=== PATIENT | female | born 1980 | race American Indian/Alaskan Native ===

== ENCOUNTER 2021-03-28 18:43 | Inpatient (IN) | payer SELFPAY ==
[2021-03-28] MEDS ORDERED: ACETAMINOPHEN 500 MG TAB PO STA (18:58)
[2021-03-28] MEDS ORDERED: ONDANSETRON 4 MG/2 ML INJ IV ONE ×2 (18:58→22:43)
[2021-03-28] MEDS ORDERED: KETOROLAC 30 MG/1 ML INJ IV ONE (19:02)
[2021-03-28] MEDS ORDERED: SODIUM CHLORIDE 0.9% 1000 ML 1,000 ML IV ONE (19:06)
--- NOTE | 2021-03-28 19:06 | Event Note ---
ED Screening Note Date of service: 03/28/21 Time: 19:05 ED Screening Note: Patient complains of nausea and vomiting x7 days Arrived by EMS States she has had 2 - Covid test She does admit to cough Patient complains of right lower quadrant pain only with urinating and with defecation This initial assessment/diagnostic orders/clinical plan/treatment(s) is/are subject to change based on patients health status, clinical progression and re- assessment by fellow clinical providers in the ED. Further treatment and workup at subsequent clinical providers discretion. Patient/guardian urged not to elope from the ED as their condition may be serious if not clinically assessed and managed. Initial orders include: Labs Chest x-ray Meds
[2021-03-28 19:16] LABS: Basophils % (Auto) 0.2 % (0.0-1.8); Hematocrit 40.2 % (30.3-42.9); Hemoglobin 13.6 gm/dl (10.1-14.3); Lymphocytes # (Auto) 0.7 K/mm3 (1.2-5.4); Lymphocytes % (Auto) 9.8 % (13.4-35.0); Mean Corpuscular HGB Conc 34 % (30-34); Mean Corpuscular Volume 94 fl (79-97); Monocytes # (Auto) 0.8 K/mm3 (0.0-0.8); Platelet Count 259 K/mm3 (140-440); Red Blood Count 4.29 M/mm3 (3.65-5.03); Red Cell Distribution Width 13.5 % (13.2-15.2)
[2021-03-28 19:36] LABS: Alanine Aminotransferase 44 units/L (7-56); Albumin 3.8 g/dL (3.9-5); Blood Urea Nitrogen 8 mg/dL (7-17); Hemolysis Index 24
[2021-03-28 19:40] LABS: BUN/Creatinine Ratio 13
[2021-03-28] MEDS ORDERED: ACETAMINOPHEN 500 MG TAB PO ONE (20:15)
--- NOTE | 2021-03-28 20:18 | XRay Report ---
CHEST 2 VIEWS INDICATION: cough, fever. COMPARISON: None. FINDINGS: Support devices: None. Heart: Within normal limits. Lungs/Pleura: Pneumonia superior segment left lower lobe. Right lung clear. No significant pleural ef fusion. IMPRESSION: Pneumonia superior segment left lower lobe. Signer Name: Tesfaye Kapadia MD Signed: 03/28/2021 8:14 PM Workstation Name: [id number]
[2021-03-28] MEDS ORDERED: AZITHROMYCIN 250 MG TAB PO ONE (20:52)
[2021-03-28] MEDS ORDERED: MORPHINE 4 MG/1 ML INJ IV ONE (20:52)
[2021-03-28] MEDS ORDERED: cefTRIAXone/NS 1 GM/50 ML 1 GM/50 ML BAG IV ONE (20:52)
--- NOTE | 2021-03-28 21:31 | Cat Scan Report ---
CT ABDOMEN AND PELVIS WITH CONTRAST INDICATION / CLINICAL INFORMATION: RLQ abdominal pain. TECHNIQUE: Axial CT images were obtained through the abdomen and pelvis after 100 cc of Omnipaque [address] scans at this location are performed using CT dose reduction for ALARA by means of automated exposure control. COMPARISON: None available. FINDINGS: LOWER CHEST: There are scattered groundglass opacities with bilateral lower lobes, most consistent wi th Covid pneumonia. There is a small pericardial effusion. AORTA / ARTERIES: No significant abnormality. IVC / VEINS: No significant abnormality. LYMPH NODES: No significant adenopathy. COLON: No significant abnormality. APPENDIX: The appendix is enlarged, measuring proximally 1.0 cm. STOMACH / SMALL BOWEL: No significant abnormality. PERITONEUM: There is a small amount of free fluid within the pelvis. No free air. No fluid collection . LIVER: No significant abnormality. GALLBLADDER: No significant abnormality. BILE DUCTS: No significant abnormality. PANCREAS: No significant abnormality. SPLEEN: No significant abnormality. ADRENALS: No significant abnormality. RIGHT KIDNEY / URETER: No significant abnormality. LEFT KIDNEY / URETER: No significant abnormality. URINARY BLADDER: No significant abnormality. REPRODUCTIVE ORGANS: No significant abnormality. SKELETAL SYSTEM: No significant abnormality. ADDITIONAL FINDINGS: None. IMPRESSION: 1. Acute appendicitis. 2. Ground glass opacities within the bilateral lower lobes concerning for Covid pneumonia. 3. There is a small amount of free fluid within the pelvis, which may be physiologic versus related t o the acute appendicitis. 4. Small pericardial effusion. Signer Name: Matt Traore DO Signed: 03/28/2021 9:27 PM Workstation Name: [id number]
[2021-03-28 22:05] LABS: Mucus,Urine FEW /HPF
[2021-03-28 22:21] LABS: Color,Urine Straw (Yellow)
[2021-03-28 22:22] LABS: Bilirubin,Urine Negative (Negative); Blood,Urine Trace (Negative); Urobilinogen,Urine < 2.0 mg/dL (<2.0)
--- NOTE | 2021-03-28 22:33 | Emergency Department Report ---
ED N/V/D HPI - General Chief complaint: Nausea/Vomiting/Diarrhea Stated complaint: N/V/D Source: patient Mode of arrival: Ambulatory Limitations: No Limitations - History of Present Illness Initial comments: Patient is a 40-year-old -Surinamese female with no past medical history who presents to the ED with complaint of acute onset persistent severe right lower quadrant pain, nausea and vomiting and diarrhea for the last 1 week. Patient states that her tested positive for COVID-19 viral infection about a week ago and has been in self quarantine. Patient also complains of diffuse body aches and pains, lack of appetite, generalized weakness, lightheadedness and headache. Patient also states that she has not been able to keep anything down including fluids due to persistent nausea and vomiting and diarrhea. Patient states that she has had to repeat COVID-19 diagnostic test results which were negative. Patient however denies dizziness, syncope, chest pain or shortness of breath, dysuria, urinary frequency and urgency, vaginal bleeding, vaginal discharge, constipation, back pain, palpitations or change in vision. MD complaint: nausea, vomiting, diarrhea, abdominal pain, other -: Sudden (Fever and chills), week(s) (1) Description of Vomiting: food contents, watery, bilious Description of Diarrhea: water Associated Abdominal Pain: Yes (Severe right lower quadrant pain) Location: RLQ Radiation: none Severity: severe Pain Scale: 8 Quality: cramping, aching, sharp Consistency: constant Improves with: none Worsens with: eating, bowel movement, vomiting, movement Associated Symptoms: denies other symptoms, myalgias, fever/chills, headaches, loss of appetite, malaise, nausea/vomiting, weakness. denies: chest pain, cough, diaphoresis, rash, dysuria, shortness of breath, syncope - Related Data Allergies Allergy/AdvReac Type Severity Reaction Status Date / Time No Known Allergies Allergy Unverified 03/28/21 18:48 ED Review of Systems ROS: Stated complaint: N/V/D Other details as noted in HPI Constitutional: chills, fever, malaise, weakness Eyes: denies: eye pain, eye discharge, vision change ENT: denies: ear pain, throat pain Respiratory: cough. denies: shortness of breath, wheezing Cardiovascular: denies: chest pain, palpitations Endocrine: no symptoms reported Gastrointestinal: abdominal pain (Right lower quadrant pain), nausea, vomiting, diarrhea Genitourinary: denies: urgency, dysuria, frequency, hematuria, discharge, abnormal menses Musculoskeletal: arthralgia, myalgia. denies: back pain, joint swelling Skin: denies: rash, lesions Neurological: denies: headache, weakness, paresthesias Psychiatric: denies: anxiety, depression Hematological/Lymphatic: denies: easy bleeding, easy bruising ED Physical Exam - General Limitations: No Limitations General appearance: alert, in no apparent distress - Head Head exam: Present: atraumatic, normocephalic, normal inspection - Eye Eye exam: Present: normal appearance, PERRL, EOMI Pupils: Present: normal accommodation - ENT ENT exam: Present: normal exam, normal orophraynx, mucous membranes moist, TM's normal bilaterally, normal external ear exam - Neck Neck exam: Present: normal inspection, full ROM - Respiratory Respiratory exam: Present: normal lung sounds bilaterally. Absent: respiratory distress, wheezes, rales, stridor, chest wall tenderness, accessory muscle use, decreased breath sounds, prolonged expiratory, other - Cardiovascular Cardiovascular Exam: Present: regular rate, normal rhythm, normal heart sounds. Absent: systolic murmur, diastolic murmur, rubs, gallop - GI/Abdominal GI/Abdominal exam: Present: soft, tenderness (Palpable severe right lower quadrant rebound tenderness with guarding), guarding, rebound, normal bowel sounds. Absent: hyperactive bowel sounds, hypoactive bowel sounds, organomega ly, mass - Extremities Exam Extremities exam: Present: normal inspection, full ROM, normal capillary refill - Back Exam Back exam: Present: normal inspection, full ROM. Absent: tenderness, CVA tenderness (R), CVA tenderness (L), muscle spasm, paraspinal tenderness, vertebral tenderness - Neurological Exam Neurological exam: Present: alert, oriented X3, CN II-XII intact, normal gait, reflexes normal - Psychiatric Psychiatric exam: Present: normal affect, normal mood - Skin Skin exam: Present: warm, dry, intact, normal color. Absent: rash ED Course Vital Signs 03/28/21 03/28/21 18:53 20:22 Temperature 100.3 F H Pulse Rate 78 Respiratory 16 18 Rate Blood Pressure 108/70 O2 Sat by Pulse 97 Oximetry - Reevaluation(s) Reevaluation #1: 03/28/21 22:46 I paged and discussed the patient's case with the general surgeon on-call Dr. Johnson who advised that the patient be admitted to the hospital by the hospitalist physician on-call, and that the patient be kept n.p.o. after midnight and started on IV antibiotics and pain control. ED Medical Decision Making - Lab Data Result diagrams: 03/28/21 19:07 03/28/21 19:07 - Radiology Data Radiology results: report reviewed, image reviewed [facility] [address] [place] [address] XRay Report Signed Patient: CELINE BACH MR#: [id number] : 1980 Acct:[id number] Age/Sex: 40 / F ADM Date: 03/28/21 Loc: ED Attending Dr: Ordering Physician: DONNY MARY Date of Service: 03/28/21 Procedure(s): XR chest routine 2V Accession Number(s): [id number] cc: DONNY MARY Fluoro Time In Minutes: CHEST 2 VIEWS INDICATION: cough, fever. COMPARISON: None. FINDINGS: Support devices: None. Heart: Within normal limits. Lungs/Pleura: Pneumonia superior segment left lower lobe. Right lung clear. No significant pleural effusion. IMPRESSION: Pneumonia superior segment left lower lobe. Signer Name: Tesfaye Kapadia MD Signed: 03/28/2021 8:14 PM Workstation Name: [id number] Transcribed By: ES Dictated By: Tesfaye Kapadia MD Electronically Authenticated By: Tesfaye Kapadia MD Signed Date/Time: 03/28/212013 DD/ 12 TD/TT: [facility] [address] [place] [address] Cat Scan Report Signed Patient: CELINE BACH MR#: [id number] : 1980 Acct:[id number] Age/Sex: 40 / F A DM Date: 03/28/21 Loc: ED Attending Dr: Ordering Physician: CHEYANNE STEPHENS Date of Service: 03/28/21 Procedure(s): CT abdomen pelvis w con Accession Number(s): [id number] cc: CHEYANNE STEPHENS CT ABDOMEN AND PELVIS WITH CONTRAST INDICATION / CLINICAL INFORMATION: RLQ abdominal pain. TECHNIQUE: Axial CT images were obtained through the abdomen and pelvis after 100 cc of Omnipaque [address] scans at this location are performed using CT dose reduction for ALARA by means of automated exposure control. COMPARISON: None available. FINDINGS: LOWER CHEST: There are scattered groundglass opacities with bilateral lower lobes, most consistent with Covid pneumonia. There is a small pericardial effusion. AORTA / ARTERIES: No significant abnormality. IVC / VEINS: No significant abnormality. LYMPH NODES: No significant adenopathy. COLON: No significant abnormality. APPENDIX: The appendix is enlarged, measuring proximally 1.0 cm. STOMACH / SMALL BOWEL: No significant abnormality. PERITONEUM: There is a small amount of free fluid within the pelvis. No free air. No fluid collection. LIVER: No significant abnormality. GALLBLADDER: No significant abnormality. BILE DUCTS: No significant abnormality. PANCREAS: No significant abnormality. SPLEEN: No significant abnormality. ADRENALS: No significant abnormality. RIGHT KIDNEY / URETER: No significant abnormality. LEFT KIDNEY / URETER: No significant abnormality. URINARY BLADDER: No significant abnormality. REPRODUCTIVE ORGANS: No significant abnormality. SKELETAL SYSTEM: No significant abnormality. ADDITIONAL FINDINGS: None. IMPRESSION: 1. Acute appendicitis. 2. Ground glass opacities within the bilateral lower lobes concerning for Covid pneumonia. 3. There is a small amount of free fluid within the pelvis, which may be physiologic versus related to the acute appendicitis. 4. Small pericardial effusion. Signer Name: Matt Castorena DO Signed: 03/28/2021 9:27 PM Workstation Name: [id number] Transcribed By: SHABNAM Dictated By: MATT CASTORENA DO Electronically Authenticated By: MATT CASTORENA DO Signed Date/Time: 03/28/212126 DD/ 19 TD/TT: - Medical Decision Making This is a 40-year-old -[place]inamese female with no past medical history who presents to the ED with complaint of acute onset persistent severe right lower quadrant pain, nausea and vomiting and diarrhea for the last 1 week. Patient states that her tested positive for COVID-19 viral infection about a week ago and has been in self quarantine. Patient also complains of diffuse body aches and pains, lack of appetite, generalized weakness, lightheadedness and headache. Patient also states that she has not been able to keep anything down including fluids due to persistent nausea and vomiting and diarrhea. Patient states that she has had to repeat COVID-19 diagnostic test results which were negative. In the ED, patient is alert and oriented x3 and is not in any distress. Patient is febrile in triage and with oxygen saturation of 97% in room air. Patient was treated for pain and fever, also given antiemetics and normal saline 1 L IV bolus x1. Lab test results were reviewed and are all nonactionable. The chest x-ray showed pneumonia superior segment left lower lobe. Patient was treated in the ED empirically for community-acquired pneumonia with Rocephin 1 g IV x1 and azithromycin 500 mg p.o. x1. Abdomen pelvis CT scan with contrast showed acute appendicitis. It also showed ground glass opacities within the bilateral lower lobes concerning for Covid pneumonia. In addition there is a small amount of free fluid within the pelvis, which may be physiologic versus related to the acute appendicitis, and also a small pericardial effusion. Blood cultures were collected, and lactic acid also ordered. These findings were discussed with the ED attending physician Dr. Diaz who also evaluated the patient and agreed the plan of care to page and discussed the patient's findings with the general surgeon on-call Dr. Johnson and told the patient admitted by the hospitalist physician with Dr. Schreiber. I therefore paged and discussed the patient's case and the findings with the general surgeon on-call Dr. Johnson who advised that the patient be admitted to the hospital by the hospitalist physician on-call and that the patient be kept n.p.o. and that the patient also be treated in the ED empirically with IV antibiotics. I therefore discussed the patient's case with the hospitalist group, and with Ms. Hernadez LEGAL ARBITRATOR with Dr. Schreiber who admitted the patient to the hospital for further evaluation. - Differential Diagnosis Appendicitis; pneumonia; dehydration; COVID-19; UTI; GERD Critical Care Time: Yes (40) Critical care time in (mins) excluding proc time.: 40 Critical care attestation.: If time is entered above; I have spent that time in minutes in the direct care of this critically ill patient, excluding procedure time. The critical care time spent on review of lab test results, imaging reports, discussions with the specialist physicians, patient education of the plan of care and documentation. Critical Care Time: 40 minutes critical care time spent on review of lab test results, imaging reports, discussions with the specialist physicians, patient education of the plan of care and documentation. ED Disposition Clinical Impression: Pneumonia due to 2019 novel coronavirus, Nausea, vomiting and diarrhea, Acute abdominal pain in right lower quadrant, Fever and chills Acute appendicitis Qualifiers: Acute appendicitis type: unspecified acute appendicitis type Qualified Code(s): K35.80 - Unspecified acute appendicitis Disposition: 02 [facility]ORT TERM [facility]OSP[facility] Is pt being admited?: Yes Does the pt Need Aspirin: No Condition: Stable Instructions: Bacterial Pneumonia (ED) Time of Disposition: 22:46 Print Language: OCCITAN
[2021-03-28] MEDS ORDERED: PIPERACIL/TAZOBACTA 4.5/NS 100 4.5 GM/100 ML VIAL IV ONE (22:43)
[2021-03-28] MEDS ORDERED: HYDROmorphone 1 MG/1 ML INJ IV ONE (22:43)
[2021-03-28] MEDS ORDERED: oxyCODONE /ACETAMINOPHEN 5-325MG TAB PO PRN (22:48)
--- NOTE | 2021-03-28 23:14 | History and Physical Report ---
History of Present Illness Date of examination: 03/28/21 Date of admission: 03/28/21 Chief complaint: shortness of breath Abdominal Pain History of present illness: This is a 40-year-old female seen in ED at bedside. Patient presents to the ED with complaint of acute onset persistent severe right lower quadrant pain, nausea and vomiting and diarrhea for the last 1 week. Patient states that her tested positive for COVID-19 viral infection about a week ago and has been in self quarantine. Patient also complains of diffuse body aches and pains, lack of appetite, generalized weakness, lightheadedness and headache. Patient denies chest pain, syncope and palpitation. Patient admits marijuana use, alcohol use, but denies cocaine use. CT of the abdomen is done-Showed acute appendicitis, groundglass opacity within the bilateral lower lobe concerning for Covid pneumonia. CT of the abdomen also showed a small amount of free fluid within the pelvis and a small pericardial effusion. General surgeon has been consulted. Past History Past Medical History: No medical history Past Surgical History: No surgical history Social history: smoking, alcohol abuse, full code. denies: prescription drug abuse, IV drug use Family history: no significant family history Medications and Allergies Allergies Allergy/AdvReac Type Severity Reaction Status Date / Time No Known Allergies Allergy Unverified 03/28/21 18:48 Active Meds: Active Medications Acetaminophen (Acetaminophen 325 Mg Tab) 650 mg PO Q4H PRN PRN Reason: Pain MILD(1-3)/Fever >100.5/BAEZ Ondansetron HCl (Ondansetron 4 Mg/2 Ml Inj) 4 mg IV Q8H PRN PRN Reason: Nausea And Vomiting Oxycodone/Acetaminophen (Oxycodone /Acetaminophen 5-325mg Tab) 1 tab PO Q6H PRN PRN Reason: Pain, Moderate (4-6) Sodium Chloride (Sodium Chloride 0.9% 10 Ml Flush Syringe) 10 ml IV BID CLAUS Sodium Chloride (Sodium Chloride 0.9% 10 Ml Flush Syringe) 10 ml IV PRN PRN PRN Reason: LINE FLUSH Review of Systems All systems: negative Constitutional: fever, anorexia, fatigue, weakness, malaise Ears, nose, mouth and throat: no epistaxis, no bleeding gums Cardiovascular: shortness of breath, no chest pain, no lightheadedness Respiratory: cough, shortness of breath, dyspnea on exertion Gastrointestinal: abdominal pain, nausea, vomiting, diarrhea, no melena Rectal: no itching, no hemorrhoids Musculoskeletal: muscle weakness, muscle cramps Integumentary: no rash, no pruritis, no redness Neurological: weakness Psychiatric: anxiety Hematologic/Lymphatic: no easy bruising, no easy bleeding Allergic/Immunologic: no urticaria, no allergic rhinitis Exam - Constitutional Vitals: Temp Pulse Resp BP Pulse Ox 100.3 F H 78 18 108/70 97 03/28/21 18:53 03/28/21 18:53 03/28/21 20:22 03/28/21 18:53 03/28/21 18:53 General appearance: Present: mild distress, well-nourished - EENT Eyes: Present: PERRL ENT: hearing intact, clear oral mucosa - Neck Neck: Present: supple, normal ROM - Respiratory Respiratory effort: normal Respiratory: bilateral: CTA - Cardiovascular Heart rate: 78 Heart Sounds: Present: S1 & S2. Absent: rub, click - Extremities Extremities: pulses symmetrical, No edema Peripheral Pulses: within normal limits - Abdominal General gastrointestinal: Present: soft, non-tender, non-distended, normal bowel sounds Female genitourinary: Present: normal - Integumentary Integumentary: Present: clear, warm, dry - Musculoskeletal Musculoskeletal: gait normal, strength equal bilaterally - Psychiatric Psychiatric: appropriate mood/affect, intact judgment & insight, cooperative - Neurologic Neurologic: CNII-XII intact, moves all extremities - Allied Health Allied health notes reviewed: nursing Results - Labs CBC & Chem 7: 03/29/21 02:44 03/29/21 02:44 Labs: Abnormal lab results 03/28/21 03/28/21 Range/Units 19:07 19:07 Lymph % (Auto) 9.8 L (13.4-35.0) % [place] % (Auto) 11.0 H (0.0-7.3) % Lymph # (Auto) 0.7 L (1.2-5.4) K/mm3 Seg Neutrophils % 79.0 H (40.0-70.0) % AST 42 H (5-40) units/L Albumin 3.8 L (3.9-5) g/dL Assessment and Plan - Patient Problems (1) Acute appendicitis Current Visit: No Status: Inactive Qualifiers: Acute appendicitis type: unspecified acute appendicitis type Qualified Cod e(s): K35.80 - Unspecified acute appendicitis Plan to address problem: CT of the abdomen positive for acute appendicitis Empiric antibiotic General surgeon has been consulted Keep patient n.p.o. (2) Acute abdominal pain in right lower quadrant Current Visit: No Status: Inactive Plan to address problem: Patient pain management as needed (3) Pneumonia due to 2019 novel coronavirus Current Visit: No Status: Inactive Plan to address problem: CT of the chest positive for bilateral pneumonia ID [id number] with plan of care Empiric antibiotic, as needed bronchodilator, and oxygen supplement if needed Ascorbic acid, zinc sulfate and vitamin D Continue airborne and contact isolation per Covid protocol Encourage the use incentive spirometer and prone position (4) Fever and chills Current Visit: No Status: Inactive Plan to address problem: Continue IV hydration and empiric antibiotic Tylenol for fever Blood culture already ordered (5) Nausea, vomiting and diarrhea Current Visit: No Status: Inactive Plan to address problem: Antiemetic (6) Marijuana use Current Visit: No Status: Acute Plan to address problem: Discussed marijuana use cessation patient voiced understanding (7) DVT prophylaxis Current Visit: No Status: Acute Plan to address problem: SCDhold anticoagulants for now. Patient may have surgery
[2021-03-28] MEDS ORDERED: NALOXONE 0.4 MG/1 ML INJ IV PRN (23:16)
[2021-03-28] MEDS ORDERED: ONDANSETRON 4 MG/2 ML INJ IV PRN (23:16)
[2021-03-29] MEDS ORDERED: AZITHROMYCIN 250 MG TAB PO ONE (01:20)
[2021-03-29] MEDS ORDERED: cefTRIAXone/NS 1 GM/50 ML 1 GM/50 ML BAG IV ONE (01:20)
[2021-03-29 01:30] LABS: C-Reactive Protein 4.9 mg/dL (0.00-1.30)
[2021-03-29 03:32] LABS: Basophils % (Auto) 0.9 % (0.0-1.8); Hematocrit 39.8 % (30.3-42.9); Hemoglobin 13.1 gm/dl (10.1-14.3); Lymphocytes % (Auto) 18.9 % (13.4-35.0); Mean Corpuscular HGB Conc 33 % (30-34); Mean Corpuscular Volume 94 fl (79-97); Monocytes # (Auto) 0.7 K/mm3 (0.0-0.8); Monocytes % (Auto) 12.2 % (0.0-7.3); Platelet Count 252 K/mm3 (140-440); Red Blood Count 4.22 M/mm3 (3.65-5.03); Red Cell Distribution Width 13.5 % (13.2-15.2)
[2021-03-29 03:33] LABS: Alanine Aminotransferase 37 units/L (7-56); Albumin 3.6 g/dL (3.9-5); Blood Urea Nitrogen 6 mg/dL (7-17); Calcium 8.2 mg/dL (8.4-10.2); Hemolysis Index 13
[2021-03-29 03:39] LABS: BUN/Creatinine Ratio 10
[2021-03-29] MEDS ORDERED: PIPERACIL/TAZOBACTA 4.5/NS 100 4.5 GM/100 ML VIAL IV SCH (06:00)
[2021-03-29] MEDS: ONDANSETRON 4 MG/2 ML INJ IV PRN ×4 (08:51→21:15)
[2021-03-29] MEDS: MORPHINE 2 MG/1 ML INJ IV PRN ×3 (08:51→21:16)
[2021-03-29] MEDS ORDERED: AZITHROMYCIN/NS 500 MG/250 ML 500 MG/250 ML BAG IV SCH (10:00)
[2021-03-29] MEDS: cefTRIAXone/NS 1 GM/50 ML 1 GM/50 ML BAG IV SCH (11:08)
[2021-03-29] MEDS: CHOLECALCIFEROL (VIT D3) 1000 UNIT (25 mcg) TAB PO SCH (11:09)
[2021-03-29] MEDS: FAMOTIDINE 20 MG/2 ML INJ IV SCH ×2 (11:09→21:01)
[2021-03-29] MEDS: ASCORBIC ACID 500 MG TAB PO SCH (11:09)
[2021-03-29] MEDS: ZINC SULFATE 220 MG CAP PO SCH (11:09)
--- NOTE | 2021-03-29 12:38 | Consultation ---
History of Present Illness - Reason for Consult Consult date: 03/29/21 dori AARON Requesting physician: MARISOL GARCIA - History of Present Illness The patient is a 40-year-old female admitted to the hospital with shortness of breath and abdominal pain. Patient had exposure to COVID-19 positive aspirin. Due to abdominal pain, CT was done which showed possible appendicitis. There were also bilateral groundglass opacities in the lower lobes. COVID-19 PCR is pending. Labs showed normal WBC, D-dimer 710, CRP 4.9, LDH 307, ferritin 223. Review of Systems: reviewed in the chart, unable to obtain, minimize risk of transmission Past History Past Medical History: No medical history Past Surgical History: No surgical history Social history: smoking, alcohol abuse, full code. denies: prescription drug abuse, IV drug use Family history: no significant family history Medications and Allergies Allergies Allergy/AdvReac Type Severity Reaction Status Date / Time No Known Allergies Allergy Unverified 03/28/21 18:48 Active Meds: Active Medications Acetaminophen (Acetaminophen 325 Mg Tab) 650 mg PO Q4H PRN PRN Reason: Pain MILD(1-3)/Fever >100.5/BAEZ Ascorbic Acid (Ascorbic Acid 500 Mg Tab) 500 mg PO QDAY [facility] Last Admin: 03/29/21 11:09 Dose: 500 mg Documented by: Cholecalciferol (Cholecalciferol (Vit D3) 1000 Unit (25 Mcg) Tab) 1,000 unit PO QDAY [facility] Last Admin: 03/29/21 11:09 Dose: 1,000 unit Documented by: Famotidine (Famotidine 20 Mg/2 Ml Inj) 20 mg IV BID [facility] Last Admin: 03/29/21 11:09 Dose: 20 mg Documented by: Sodium Chloride (Nacl 0.9% 1000 Ml) 1,000 mls @ 75 mls/hr IV DIRECT [facility] Ceftriaxone Sodium (Rocephin/Ns 1 Gm/50 Ml) 1 gm in 50 mls @ 100 mls/hr IV Q24H [facility]; Protocol Last Admin: 03/29/21 11:08 Dose: 100 mls/hr Documented by: Metronidazole (Flagyl 500 Mg/100 Ml) 500 mg in 100 mls @ 100 mls/hr IV Q8H [facility]; Protocol Metoclopramide HCl (Metoclopramide 10 Mg/2 Ml Inj) 10 mg IV Q6H PRN PRN Reason: Nausea And Vomiting Morphine Sulfate (Morphine 2 Mg/1 Ml Inj) 2 mg IV Q4H PRN PRN Reason: Pain, Moderate (4-6) Last Admin: 03/29/21 08:51 Dose: 2 mg Documented by: Naloxone HCl (Naloxone 0.4 Mg/1 Ml Inj) 0.1 mg IV Q2MIN PRN PRN Reason: Res Rate </= 8 or 02 SAT < 92% Ondansetron HCl (Ondansetron 4 Mg/2 Ml Inj) 4 mg IV Q8H PRN PRN Reason: Nausea And Vomiting Last Admin: 03/29/21 11:18 Dose: 4 mg Documented by: Oxycodone/Acetaminophen (Oxycodone /Acetaminophen 5-325mg Tab) 1 tab PO Q6H PRN PRN Reason: Pain, Moderate (4-6) Sodium Chloride (Sodium Chloride 0.9% 10 Ml Flush Syringe) 10 ml IV BID [facility] Last Admin: 03/29/21 11:16 Dose: 10 ml Documented by: Sodium Chloride (Sodium Chloride 0.9% 10 Ml Flush Syringe) 10 ml IV PRN PRN PRN Reason: LINE FLUSH Zinc Sulfate (Zinc Sulfate 220 Mg Cap) 220 mg PO QDAY [facility] Last Admin: 03/29/21 11:09 Dose: 220 mg Documented by: Physical Examination - Physical Exam Narrative exam: Physical Exam (reviewed in chart to minimize risk of transmission) Constitutional: deferred Head, Ears, Nose: deferred Eyes: deferred Neck: deferred Oral: deferred Cardiovascular: deferred Respiratory: deferred GI: deferred Musculoskeletal: deferred Skin: deferred Hem/Lymphatic: deferred Psych: deferred Neurological: deferred - Constitutional Vitals: Vital Signs Temp Pulse Resp BP Pulse Ox 99.1 F 66 20 105/65 99 03/29/21 02:14 03/29/21 02:14 03/29/21 02:21 03/29/21 05:46 03/29/21 05:46 Temperature -Last 24 Hours Temperature 99.1 F Temperature 100.3 F Results - Labs CBC & Chem 7: 03/29/21 02:44 03/29/21 02:44 Labs: Abnormal lab results 03/28/21 03/28/21 03/28/21 Range/Units 19:07 19:07 23:15 Lymph % (Auto) 9.8 L (13.4-35.0) % [place] % (Auto) 11.0 H (0.0-7.3) % Lymph # (Auto) 0.7 L (1.2-5.4) K/mm3 Seg Neutrophils % 79.0 H (40.0-70.0) % D-Dimer 710.36 H (0-234) ng/mlDDU BUN (7-17) mg/dL Calcium (8.4-10.2) mg/dL Ferritin (10.0-200.0) ng/mL AST 42 H (5-40) units/L Lactate Dehydrogenase (91-180) units/L C-Reactive Protein (0.00-1.30) mg/dL Albumin 3.8 L (3.9-5) g/dL 03/28/21 03/28/21 03/29/21 Range/Units 23:15 23:15 02:44 Lymph % (Auto) (13.4-35.0) % [place] % (Auto) 12.2 H (0.0-7.3) % Lymph # (Auto) 1.0 L (1.2-5.4) K/mm3 Seg Neutrophils % (40.0-70.0) % D-Dimer (0-234) ng/mlDDU BUN (7-17) mg/dL Calcium (8.4-10.2) mg/dL Ferritin 223.5 H (10.0-200.0) ng/mL AST (5-40) units/L Lactate Dehydrogenase 307 H (91-180) units/L C-Reactive Protein 4.90 H (0.00-1.30) mg/dL Albumin (3.9-5) g/dL 03/29/21 Range/Units 02:44 Lymph % (Auto) (13.4-35.0) % [place] % (Auto) (0.0-7.3) % Lymph # (Auto) (1.2-5.4) K/mm3 Seg Neutrophils % (40.0-70.0) % D-Dimer (0-234) ng/mlDDU BUN 6 L (7-17) mg/dL Calcium 8.2 L (8.4-10.2) mg/dL Ferritin (10.0-200.0) ng/mL AST (5-40) units/L Lactate Dehydrogenase (91-180) units/L C-Reactive Protein (0.00-1.30) mg/dL Albumin 3.6 L (3.9-5) g/dL Assessment and Plan Cultures: SARS CoV2 PCR: Pending 03/28/2021 blood culture: In process A/P: 40/F with: #Pneumonia: Possibly COVID-19 related. Follow-up PCR. Not hypoxic. #Suspected appendicitis: General surgery has been consulted. Recs: Azithromycin discontinued Continue ceftriaxone, Flagyl for now Follow-up COVID-19 PCR, patient is not hypoxic, no indication for steroids or remdesivir at this time Follow-up general surgery eval sign Barbara Desai MD, FACP [facility] O: [phone] F: [phone]
[2021-03-29] MEDS ORDERED: BUPIVACAINE/PF (0.25%) 2.5 MG/ML 30 ML VIAL INFILTRATI ONE (15:23)
[2021-03-29] MEDS ORDERED: LIDOCAINE (1%) 10 MG/1 ML VIAL 20 ML MDV ONE (15:23)
--- NOTE | 2021-03-29 16:13 | Consultation ---
History of Present Illness Consult date: 03/29/21 Reason for consult: abdominal pain - History of present illness History of present illness: 40 yo female with cough, nausea, vomiting and RLQ pain on defecating and urination of one week duration. Past History Past Medical History: No medical history Past Surgical History: No surgical history Social history: smoking, alcohol abuse, full code. denies: prescription drug abuse, IV drug use Family history: no significant family history Medications and Allergies Allergies Allergy/AdvReac Type Severity Reaction Status Date / Time No Known Allergies Allergy Unverified 03/28/21 18:48 Active Meds: Active Medications Acetaminophen (Acetaminophen 325 Mg Tab) 650 mg PO Q4H PRN PRN Reason: Pain MILD(1-3)/Fever >100.5/BAEZ Ascorbic Acid (Ascorbic Acid 500 Mg Tab) 500 mg PO QDAY COUNT INCLUDES [facility] Last Admin: 03/29/21 11:09 Dose: 500 mg Documented by: Cholecalciferol (Cholecalciferol (Vit D3) 1000 Unit (25 Mcg) Tab) 1,000 unit PO QDAY COUNT INCLUDES [facility] Last Admin: 03/29/21 11:09 Dose: 1,000 unit Documented by: Famotidine (Famotidine 20 Mg/2 Ml Inj) 20 mg IV BID COUNT INCLUDES [facility] Last Admin: 03/29/21 11:09 Dose: 20 mg Documented by: Sodium Chloride (Nacl 0.9% 1000 Ml) 1,000 mls @ 75 mls/hr IV [facility] Ceftriaxone Sodium (Rocephin/Ns 1 Gm/50 Ml) 1 gm in 50 mls @ 100 mls/hr IV Q24H COUNT INCLUDES THE [facility]; Protocol Last Admin: 03/29/21 11:08 Dose: 100 mls/hr Documented by: Metronidazole (Flagyl 500 Mg/100 Ml) 500 mg in 100 mls @ 100 mls/hr IV Q8HR COUNT INCLUDES THE [facility]; Protocol Metoclopramide HCl (Metoclopramide 10 Mg/2 Ml Inj) 10 mg IV Q6H PRN PRN Reason: Nausea And Vomiting Morphine Sulfate (Morphine 2 Mg/1 Ml Inj) 2 mg IV Q4H PRN PRN Reason: Pain, Moderate (4-6) Last Admin: 03/29/21 13:08 Dose: 2 mg Documented by: Naloxone HCl (Naloxone 0.4 Mg/1 Ml Inj) 0.1 mg IV Q2MIN PRN PRN Reason: Res Rate </= 8 or 02 SAT < 92% Ondansetron HCl (Ondansetron 4 Mg/2 Ml Inj) 4 mg IV Q8H PRN PRN Reason: Nausea And Vomiting Last Admin: 03/29/21 13:10 Dose: 4 mg Documented by: Oxycodone/Acetaminophen (Oxycodone /Acetaminophen 5-325mg Tab) 1 tab PO Q6H PRN PRN Reason: Pain, Moderate (4-6) Sodium Chloride (Sodium Chloride 0.9% 10 Ml Flush Syringe) 10 ml IV BID [facility]CLUD[facility] Last Admin: 03/29/21 11:16 Dose: 10 ml Documented by: Sodium Chloride (Sodium Chloride 0.9% 10 Ml Flush Syringe) 10 ml IV PRN PRN PRN Reason: LINE FLUSH Zinc Sulfate (Zinc Sulfate 220 Mg Cap) 220 mg PO QDAY COUNT INCLUDES THE [facility] Last Admin: 03/29/21 11:09 Dose: 220 mg Documented by: Review of Systems All systems: negative (none) Exam Vital Signs Temp Pulse Resp BP Pulse Ox 100.3 F H 78 16 108/70 97 03/28/21 18:53 03/28/21 18:53 03/28/21 18:53 03/28/21 18:53 03/28/21 18:53 - General physical appearance Positive: well developed, well nourished, no distress - Eyes Positive: PERRL, normal occular movement - ENT Positive: normal pinna, normal nares, normal mucosa, no hearing loss, no congestion - Neck Positive: no masses, no bruits, trachea midline, no venous distension - Respiratory Positive: normal expansion, normal respiratory effort, clear to auscultation - Cardiovascular Rhythm: regular Heart Sounds: Present: S1 & S2. Absent: rub, click - Extremities Extremities: no ischemia, pulses symmetrical, No edema - Breasts Breasts: normal, no mass, no skin changes - Abdomen Abdomen: Present: soft, bowel sounds normal, other (Minimal TTP in the RLQ with deep palpation. No rebound or guarding.). Absent: distended Hernia: none - Genitourinary Male Genitourinary: normal Female Genitourinary: normal - Integumentary no rash, no growths, no abnormal pigmentation - Neurologic Neurologic: alert and oriented to time, place and person, motor strength and sensation are grossly intact - Musculoskeletal normal gait, normal posture - Psychiatric Psychiatric: appropriate mood/affect, intact judgment & insight Results - Labs 03/29/21 02:44 03/29/21 02:44 Abnormal lab results 03/28/21 03/28/21 03/28/21 Range/Units 19:07 19:07 23:15 Lymph % (Auto) 9.8 L (13.4-35.0) % [place] % (Auto) 11.0 H (0.0-7.3) % Lymph # (Auto) 0.7 L (1.2-5.4) K/mm3 Seg Neutrophils % 79.0 H (40.0-70.0) % D-Dimer 710.36 H (0-234) ng/mlDDU BUN (7-17) mg/dL Calcium (8.4-10.2) mg/dL Ferritin (10.0-200.0) ng/mL AST 42 H (5-40) units/L Lactate Dehydrogenase (91-180) units/L C-Reactive Protein (0.00-1.30) mg/dL Albumin 3.8 L (3.9-5) g/dL 03/28/21 03/28/21 03/29/21 Range/Units 23:15 23:15 02:44 Lymph % (Auto) (13.4-35.0) % [place] % (Auto) 12.2 H (0.0-7.3) % Lymph # (Auto) 1.0 L (1.2-5.4) K/mm3 Seg Neutrophils % (40.0-70.0) % D-Dimer (0-234) ng/mlDDU BUN (7-17) mg/dL Calcium (8.4-10.2) mg/dL Ferritin 223.5 H (10.0-200.0) ng/mL AST (5-40) units/L Lactate Dehydrogenase 307 H (91-180) units/L C-Reactive Protein 4.90 H (0.00-1.30) mg/dL Albumin (3.9-5) g/dL 03/29/21 Range/Units 02:44 Lymph % (Auto) (13.4-35.0) % [place] % (Auto) (0.0-7.3) % Lymph # (Auto) (1.2-5.4) K/mm3 Seg Neutrophils % (40.0-70.0) % D-Dimer (0-234) ng/mlDDU BUN 6 L (7-17) mg/dL Calcium 8.2 L (8.4-10.2) mg/dL Ferritin (10.0-200.0) ng/mL AST (5-40) units/L Lactate Dehydrogenase (91-180) units/L C-Reactive Protein (0.00-1.30) mg/dL Albumin 3.6 L (3.9-5) g/dL Diabetes panel 03/28/21 03/28/21 03/29/21 Range/Units 19:07 23:15 02:44 Sodium 138 137 (137-145) mmol/L Potassium 4.2 3.8 (3.6-5.0) mmol/L Chloride 103.3 102.2 (98-107) mmol/L Carbon Dioxide 26 27 (22-30) mmol/L BUN 8 6 L (7-17) mg/dL Creatinine 0.6 0.6 (0.6-1.2) mg/dL Glucose 98 99 84 (65-100) mg/dL Calcium 9.0 8.2 L (8.4-10.2) mg/dL AST 42 H 36 (5-40) units/L ALT 44 37 (7-56) units/L Alkaline Phosphatase 94 85 (35-129) units/L Total Protein 6.6 6.5 (6.3-8.2) g/dL Albumin 3.8 L 3.6 L (3.9-5) g/dL Calcium panel 03/28/21 03/29/21 Range/Units 19:07 02:44 Calcium 9.0 8.2 L (8.4-10.2) mg/dL Albumin 3.8 L 3.6 L (3.9-5) g/dL Pituitary panel 03/28/21 03/28/21 03/29/21 Range/Units 19:07 23:15 02:44 Sodium 138 137 (137-145) mmol/L Potassium 4.2 3.8 (3.6-5.0) mmol/L Chloride 103.3 102.2 (98-107) mmol/L Carbon Dioxide 26 27 (22-30) mmol/L BUN 8 6 L (7-17) mg/dL Creatinine 0.6 0.6 (0.6-1.2) mg/dL Glucose 98 99 84 (65-100) mg/dL Calcium 9.0 8.2 L (8.4-10.2) mg/dL Adrenal panel 03/28/21 03/28/21 03/29/21 Range/Units 19:07 23:15 02:44 Sodium 138 137 (137-145) mmol/L Potassium 4.2 3.8 (3.6-5.0) mmol/L Chloride 103.3 102.2 (98-107) mmol/L Carbon Dioxide 26 27 (22-30) mmol/L BUN 8 6 L (7-17) mg/dL Creatinine 0.6 0.6 (0.6-1.2) mg/dL Glucose 98 99 84 (65-100) mg/dL Calcium 9.0 8.2 L (8.4-10.2) mg/dL Total Bilirubin 0.20 0.20 (0.1-1.2) mg/dL AST 42 H 36 (5-40) units/L ALT 44 37 (7-56) units/L Alkaline Phosphatase 94 85 (35-129) units/L Total Protein 6.6 6.5 (6.3-8.2) g/dL Albumin 3.8 L 3.6 L (3.9-5) g/dL - Imaging CT scan - abdomen: report reviewed CT scan - pelvis: report reviewed Assessment and Plan - Patient Problems (1) RLQ abdominal pain Current Visit: Yes Status: Acute Plan to address problem: 1) Discussed options with the pt including lap appy vs observation with IV antibiotics. Pt desires to proceed with the latter which is reasonable in light of her pulmonary findings and minimal findings of acute appendicitis. 2) NPO 3) CBC in the am
[2021-03-29] MEDS: metroNIDAZOLE/NS 500 MG/100 ML 500 MG/100 ML BAG IV SCH ×2 (16:56→21:01)
--- NOTE | 2021-03-29 20:11 | Progress Note ---
Assessment and Plan Assessment and plan: #Acute appendicitis -Surgery consulted, will continue with medical management -NPO status for now -continue antibiotics (rocephin and flagyl) #Suspected COVID-19 infection - tested positive for COVID-19 -patient has had GI symptoms since he tested positive but has had negative tests -03/29 Coronavirus PCR negative -flu antigen ordered per patients request #Abdominal pain -improving, patient reports having dull pain in LLQ for several years -likely 2/2 to appendicitis -PRN pain medications #Nausea/Vomiting -PRN zofran Disposition Plan: Continue medical care Total Time Spent with Patient (Minutes): 20 minutes History Interval history: No acute events. Patient reports improvement in abdominal pain since admission. Hospitalist Physical - Physical exam Narrative exam: General:lying in bed in no acute distress HEENT: Normocephalic, atraumatic Respiratory: CTAB. Cardio: RRR. No murmurs, rubs or gallops Abdomen: +BS. NT/ND. Extremities: No cyanosis, clubbing or edema Neuro: No focal deficits. ROM intact x 4 extremities - Constitutional Vitals: Temp Pulse Resp BP Pulse Ox 99.7 F H 64 18 106/62 95 03/29/21 18:38 03/29/21 18:38 03/29/21 18:38 03/29/21 18:38 03/29/21 18:38 General appearance: Present: mild distress, well-nourished Results - Labs CBC & Chem 7: 03/30/21 06:05 03/30/21 06:05 Labs: Laboratory Last Values WBC 5.5 K/mm3 (4.5-11.0) 03/29/21 02:44 RBC 4.22 M/mm3 (3.65-5.03) 03/29/21 02:44 Hgb 13.1 gm/dl (10.1-14.3) 03/29/21 02:44 Hct 39.8 % (30.3-42.9) 03/29/21 02:44 MCV 94 fl (79-97) 03/29/21 02:44 MCH 31 pg (28-32) 03/29/21 02:44 MCHC 33 % (30-34) 03/29/21 02:44 RDW 13.5 % (13.2-15.2) 03/29/21 02:44 Plt Count 252 K/mm3 (140-440) 03/29/21 02:44 Lymph % (Auto) 18.9 % (13.4-35.0) 03/29/21 02:44 [place] % (Auto) 12.2 % (0.0-7.3) H 03/29/21 02:44 Eos % (Auto) 0.0 % (0.0-4.3) 03/29/21 02:44 Baso % (Auto) 0.9 % (0.0-1.8) 03/29/21 02:44 Lymph # (Auto) 1.0 K/mm3 (1.2-5.4) L 03/29/21 02:44 [place] # (Auto) 0.7 K/mm3 (0.0-0.8) 03/29/21 02:44 Eos # (Auto) 0.0 K/mm3 (0.0-0.4) 03/29/21 02:44 Baso # (Auto) 0.0 K/mm3 (0.0-0.1) 03/29/21 02:44 Seg Neutrophils % 68.0 % (40.0-70.0) 03/29/21 02:44 Seg Neutrophils # 3.7 K/mm3 (1.8-7.7) 03/29/21 02:44 D-Dimer 710.36 ng/mlDDU (0-234) H 03/28/21 23:15 Sodium 137 mmol/L (137-145) 03/29/21 02:44 Potassium 3.8 mmol/L (3.6-5.0) 03/29/21 02:44 Chloride 102.2 mmol/L (98-107) 03/29/21 02:44 Carbon Dioxide 27 mmol/L (22-30) 03/29/21 02:44 Anion Gap 12 mmol/L 03/29/21 02:44 BUN 6 mg/dL (7-17) L 03/29/21 02:44 Creatinine 0.6 mg/dL (0.6-1.2) 03/29/21 02:44 Estimated GFR > 60 ml/min 03/29/21 02:44 BUN/Creatinine Ratio 10 % 03/29/21 02:44 Glucose 84 mg/dL (65-100) 03/29/21 02:44 Lactic Acid 0.70 mmol/L (0.7-2.0) 03/28/21 23:15 Calcium 8.2 mg/dL (8.4-10.2) L 03/29/21 02:44 Ferritin 223.5 ng/mL (10.0-200.0) H 03/28/21 23:15 Total Bilirubin 0.20 mg/dL (0.1-1.2) 03/29/21 02:44 AST 36 units/L (5-40) 03/29/21 02:44 ALT 37 units/L (7-56) 03/29/21 02:44 Alkaline Phosphatase 85 units/L (35-129) 03/29/21 02:44 Lactate Dehydrogenase 307 units/L (91-180) H 03/28/21 23:15 C-Reactive Protein 4.90 mg/dL (0.00-1.30) H 03/28/21 23:15 Total Protein 6.5 g/dL (6.3-8.2) 03/29/21 02:44 Albumin 3.6 g/dL (3.9-5) L 03/29/21 02:44 Albumin/Globulin Ratio 1.2 % 03/29/21 02:44 Procalcitonin < 0.05 ng/mL (<0.15) 03/28/21 23:15 HCG, Qual Negative (Negative) 03/28/21 19:07 Urine Color Straw (Yellow) 03/28/21 21:37 Urine Turbidity Clear (Clear) 03/28/21 21:37 Urine pH 6.0 (5.0-7.0) 03/28/21 21:37 Ur Specific [place] 1.025 (1.003-1.030) 03/28/21 21:37 Urine Protein 30 mg/dl mg/dL (Negative) 03/28/21 21:37 Urine Glucose (UA) Negative mg/dL (Negative) 03/28/21 21:37 Urine Ketones 25 mg/dL (Negative) 03/28/21 21:37 Urine Blood Trace (Negative) 03/28/21 21:37 Urine Nitrite Negative (Negative) 03/28/21 21:37 Ur Reducing Substances Not Reportable 03/28/21 21:37 Urine Bilirubin Negative (Negative) 03/28/21 21:37 Urine Ictotest Not Reportable 03/28/21 21:37 Urine Urobilinogen < 2.0 mg/dL (<2.0) 03/28/21 21:37 Ur Leukocyte Esterase Negative (Negative) 03/28/21 21:37 Urine WBC (Auto) 1.0 /HPF (0.0-6.0) 03/28/21 21:37 Urine RBC (Auto) 2.0 /HPF (0.0-6.0) 03/28/21 21:37 U Epithel Cells (Auto) 1.0 /HPF (0-13.0) 03/28/21 21:37 Urine Mucus Few /HPF 03/28/21 21:37 Coronavirus (PCR) Negative (Negative) 03/29/21 08:30 Microbiology: Microbiology 03/28/21 23:15 Peripheral/Venous Blood Culture - Preliminary Culture in Progress 03/28/21 23:09 Peripheral/Venous Blood Culture - Preliminary Culture in Progress Goff/IV: Voiding Method Toilet Active Medications - Current Medications Current Medications: Generic Name Dose Route Start Last Admin Trade Name Freq PRN Reason Stop Dose Admin Acetaminophen 650 mg 03/28/21 22:48 Acetaminophen 325 Mg Tab PO Q4H PRN Pain MILD(1-3)/Fever >100.5/BAEZ Ascorbic Acid 500 mg 03/29/21 10:00 03/29/21 11:09 Ascorbic Acid 500 Mg Tab PO 500 mg QDAY [facility] Administration Cholecalciferol 1,000 unit 03/29/21 10:00 03/29/21 11:09 Cholecalciferol (Vit D3) 1000 Unit (25 Mcg) Tab PO 1,000 unit QDAY [facility] Administration Famotidine 20 mg 03/29/21 10:00 03/29/21 11:09 Famotidine 20 Mg/2 Ml Inj IV 20 mg BID [facility] Administration Sodium Chloride 1,000 mls @ 75 mls/hr 03/28/21 23:30 Nacl 0.9% 1000 Ml IV DIRECT [facility]US Ceftriaxone Sodium 1 gm in 50 mls @ 100 mls/hr 03/29/21 10:00 03/29/21 11:08 Rocephin/Ns 1 Gm/50 Ml IV 100 mls/hr Q24H [facility] Administration Protocol Metronidazole 500 mg in 100 mls @ 100 mls/hr 03/29/21 14:00 03/29/21 16:56 Flagyl 500 Mg/100 Ml IV 100 mls/hr Q8HR [facility] Administration Protocol Metoclopramide HCl 10 mg 03/28/21 23:16 Metoclopramide 10 Mg/2 Ml Inj IV Q6H PRN Nausea And Vomiting Morphine Sulfate 2 mg 03/28/21 23:16 03/29/21 13:08 Morphine 2 Mg/1 Ml Inj IV 2 mg Q4H PRN Administration Pain, Moderate (4-6) Naloxone HCl 0.1 mg 03/28/21 23:16 Naloxone 0.4 Mg/1 Ml Inj IV Q2MIN PRN Res Rate </= 8 or 02 SAT < 92% Ondansetron HCl 4 mg 03/28/21 22:48 03/29/21 13:10 Ondansetron 4 Mg/2 Ml Inj IV 4 mg Q8H PRN Administration Nausea And Vomiting Oxycodone/Acetaminophen 1 tab 03/28/21 22:48 Oxycodone /Acetaminophen 5-325mg Tab PO Q6H PRN Pain, Moderate (4-6) Sodium Chloride 10 ml 03/28/21 23:00 03/29/21 11:16 Sodium Chloride 0.9% 10 Ml Flush Syringe IV 10 ml BID [facility] Administration Sodium Chloride 10 ml 03/28/21 22:48 Sodium Chloride 0.9% 10 Ml Flush Syringe IV PRN PRN LINE FLUSH Zinc Sulfate 220 mg 03/29/21 10:00 03/29/21 11:09 Zinc Sulfate 220 Mg Cap PO 220 mg QDAY [facility] Administration
[2021-03-29] MEDS: SODIUM CHLORIDE 0.9% 1000 ML 1,000 ML IV SCH (21:01)
[2021-03-30] MEDS: METOCLOPRAMIDE 10 MG/2 ML INJ IV PRN ×2 (04:35→13:16)
[2021-03-30] MEDS: MORPHINE 2 MG/1 ML INJ IV PRN ×2 (04:36→13:16)
[2021-03-30] MEDS: metroNIDAZOLE/NS 500 MG/100 ML 500 MG/100 ML BAG IV SCH ×3 (05:27→23:02)
[2021-03-30 06:43] LABS: Basophils % (Auto) 0.2 % (0.0-1.8); Eosinophils % (Auto) 0.1 % (0.0-4.3); Hematocrit 37.5 % (30.3-42.9); Hemoglobin 12.4 gm/dl (10.1-14.3); Lymphocytes # (Auto) 0.7 K/mm3 (1.2-5.4); Lymphocytes % (Auto) 10.6 % (13.4-35.0); Mean Corpuscular HGB Conc 33 % (30-34); Mean Corpuscular Volume 97 fl (79-97); Monocytes # (Auto) 0.9 K/mm3 (0.0-0.8); Monocytes % (Auto) 12.8 % (0.0-7.3); Platelet Count 245 K/mm3 (140-440); Red Blood Count 3.86 M/mm3 (3.65-5.03); Red Cell Distribution Width 13.4 % (13.2-15.2)
[2021-03-30 07:00] LABS: BUN/Creatinine Ratio 9; Blood Urea Nitrogen 7 mg/dL (7-17); Calcium 8.3 mg/dL (8.4-10.2); Hemolysis Index 2
--- NOTE | 2021-03-30 08:22 | Progress Note ---
Assessment and Plan Assessment and plan: #Acute appendicitis -NPO status -Surgery consulted, will continue with medical management -continue antibiotics (flagyl and rocephin) #Suspected COVID-19 infection -CT abd/pelvis showed concern for COVID-19 PNA; will not treat with antibiotics at this time - tested positive for COVID-19 -patient has had GI symptoms since he tested positive but has had negative tests -03/29 Coronavirus PCR negative -flu antigen pending #Abdominal pain -likely 2/2 to appendicitis -PRN pain medications #Nausea/Vomiting -PRN zofran Disposition Plan: Home Total Time Spent with Patient (Minutes): 20 minutes History Interval history: No acute events. Patient reports improvement in abdominal pain since admission. Hospitalist Physical - Physical exam Narrative exam: General:lying in bed in no acute distress HEENT: Normocephalic, atraumatic Respiratory: CTAB. Cardio: RRR. No murmurs, rubs or gallops Abdomen: +BS. NT/ND. Extremities: No cyanosis, clubbing or edema Neuro: No focal deficits. ROM intact x 4 extremities - Constitutional Vitals: Temp Pulse Resp BP Pulse Ox 98.5 F 57 L 16 106/58 97 03/30/21 06:00 03/30/21 06:00 03/30/21 06:00 03/30/21 06:00 03/30/21 06:00 General appearance: Present: mild distress, well-nourished Results - Labs CBC & Chem 7: 03/30/21 06:05 03/30/21 06:05 Labs: Laboratory Last Values WBC 6.6 K/mm3 (4.5-11.0) 03/30/21 06:05 RBC 3.86 M/mm3 (3.65-5.03) 03/30/21 06:05 Hgb 12.4 gm/dl (10.1-14.3) 03/30/21 06:05 Hct 37.5 % (30.3-42.9) 03/30/21 06:05 MCV 97 fl (79-97) 03/30/21 06:05 MCH 32 pg (28-32) 03/30/21 06:05 MCHC 33 % (30-34) 03/30/21 06:05 RDW 13.4 % (13.2-15.2) 03/30/21 06:05 Plt Count 245 K/mm3 (140-440) 03/30/21 06:05 Lymph % (Auto) 10.6 % (13.4-35.0) L 03/30/21 06:05 [place] % (Auto) 12.8 % (0.0-7.3) H 03/30/21 06:05 Eos % (Auto) 0.1 % (0.0-4.3) 03/30/21 06:05 Baso % (Auto) 0.2 % (0.0-1.8) 03/30/21 06:05 Lymph # (Auto) 0.7 K/mm3 (1.2-5.4) L 03/30/21 06:05 [place] # (Auto) 0.9 K/mm3 (0.0-0.8) H 03/30/21 06:05 Eos # (Auto) 0.0 K/mm3 (0.0-0.4) 03/30/21 06:05 Baso # (Auto) 0.0 K/mm3 (0.0-0.1) 03/30/21 06:05 Seg Neutrophils % 76.3 % (40.0-70.0) H 03/30/21 06:05 Seg Neutrophils # 5.1 K/mm3 (1.8-7.7) 03/30/21 06:05 D-Dimer 710.36 ng/mlDDU (0-234) H 03/28/21 23:15 Sodium 140 mmol/L (137-145) 03/30/21 06:05 Potassium 3.6 mmol/L (3.6-5.0) 03/30/21 06:05 Chloride 104.5 mmol/L (98-107) 03/30/21 06:05 Carbon Dioxide 19 mmol/L (22-30) L D 03/30/21 06:05 Anion Gap 20 mmol/L 03/30/21 06:05 BUN 7 mg/dL (7-17) 03/30/21 06:05 Creatinine 0.8 mg/dL (0.6-1.2) 03/30/21 06:05 Estimated GFR > 60 ml/min 03/30/21 06:05 BUN/Creatinine Ratio 9 % 03/30/21 06:05 Glucose 89 mg/dL (65-100) 03/30/21 06:05 Lactic Acid 0.70 mmol/L (0.7-2.0) 03/28/21 23:15 Calcium 8.3 mg/dL (8.4-10.2) L 03/30/21 06:05 Ferritin 223.5 ng/mL (10.0-200.0) H 03/28/21 23:15 Total Bilirubin 0.20 mg/dL (0.1-1.2) 03/29/21 02:44 AST 36 units/L (5-40) 03/29/21 02:44 ALT 37 units/L (7-56) 03/29/21 02:44 Alkaline Phosphatase 85 units/L (35-129) 03/29/21 02:44 Lactate Dehydrogenase 307 units/L (91-180) H 03/28/21 23:15 C-Reactive Protein 4.90 mg/dL (0.00-1.30) H 03/28/21 23:15 Total Protein 6.5 g/dL (6.3-8.2) 03/29/21 02:44 Albumin 3.6 g/dL (3.9-5) L 03/29/21 02:44 Albumin/Globulin Ratio 1.2 % 03/29/21 02:44 Procalcitonin < 0.05 ng/mL (<0.15) 03/28/21 23:15 HCG, Qual Negative (Negative) 03/28/21 19:07 Urine Color Straw (Yellow) 03/28/21 21:37 Urine Turbidity Clear (Clear) 03/28/21 21:37 Urine pH 6.0 (5.0-7.0) 03/28/21 21:37 Ur Specific [place] 1.025 (1.003-1.030) 03/28/21 21:37 Urine Protein 30 mg/dl mg/dL (Negative) 03/28/21 21:37 Urine Glucose (UA) Negative mg/dL (Negative) 03/28/21 21:37 Urine Ketones 25 mg/dL (Negative) 03/28/21 21:37 Urine Blood Trace (Negative) 03/28/21 21:37 Urine Nitrite Negative (Negative) 03/28/21 21:37 Ur Reducing Substances Not Reportable 03/28/21 21:37 Urine Bilirubin Negative (Negative) 03/28/21 21:37 Urine Ictotest Not Reportable 03/28/21 21:37 Urine Urobilinogen < 2.0 mg/dL (<2.0) 03/28/21 21:37 Ur Leukocyte Esterase Negative (Negative) 03/28/21 21:37 Urine WBC (Auto) 1.0 /HPF (0.0-6.0) 03/28/21 21:37 Urine RBC (Auto) 2.0 /HPF (0.0-6.0) 03/28/21 21:37 U Epithel Cells (Auto) 1.0 /HPF (0-13.0) 03/28/21 21:37 Urine Mucus Few /HPF 03/28/21 21:37 Coronavirus (PCR) Negative (Negative) 03/29/21 08:30 Microbiology: Microbiology 03/28/21 23:15 Peripheral/Venous Blood Culture - Preliminary NO GROWTH AFTER 24 HOURS 03/28/21 23:09 Peripheral/Venous Blood Culture - Preliminary NO GROWTH AFTER 24 HOURS Goff/IV: Voiding Method Toilet Active Medications - Current Medications Current Medications: Generic Name Dose Route Start Last Admin Trade Name Freq PRN Reason Stop Dose Admin Acetaminophen 650 mg 03/28/21 22:48 Acetaminophen 325 Mg Tab PO Q4H PRN Pain MILD(1-3)/Fever >100.5/BAEZ Ascorbic Acid 500 mg 03/29/21 10:00 03/29/21 11:09 Ascorbic Acid 500 Mg Tab PO 500 mg QDAY CLAUS Administration Cholecalciferol 1,000 unit 03/29/21 10:00 03/29/21 11:09 Cholecalciferol (Vit D3) 1000 Unit (25 Mcg) Tab PO 1,000 unit QDAY CLAUS Administration Famotidine 20 mg 03/29/21 10:00 03/29/21 21:01 Famotidine 20 Mg/2 Ml Inj IV 20 mg BID CLAUS Administration Sodium Chloride 1,000 mls @ 75 mls/hr 03/28/21 23:30 03/29/21 21:01 Nacl 0.9% 1000 Ml IV 75 mls/hr DIRECT CLAUS Administration Ceftriaxone Sodium 1 gm in 50 mls @ 100 mls/hr 03/29/21 10:00 03/29/21 11:08 Rocephin/Ns 1 Gm/50 Ml IV 100 mls/hr Q24H CLAUS Administration Protocol Metronidazole 500 mg in 100 mls @ 100 mls/hr 03/29/21 14:00 03/30/21 05:27 Flagyl 500 Mg/100 Ml IV 100 mls/hr Q8HR CLAUS Administration Protocol Metoclopramide HCl 10 mg 03/28/21 23:16 03/30/21 04:35 Metoclopramide 10 Mg/2 Ml Inj IV 10 mg Q6H PRN Administration Nausea And Vomiting Morphine Sulfate 2 mg 03/28/21 23:16 03/30/21 04:36 Morphine 2 Mg/1 Ml Inj IV 2 mg Q4H PRN Administration Pain, Moderate (4-6) Naloxone HCl 0.1 mg 03/28/21 23:16 Naloxone 0.4 Mg/1 Ml Inj IV Q2MIN PRN Res Rate </= 8 or 02 SAT < 92% Ondansetron HCl 4 mg 03/28/21 22:48 03/29/21 21:15 Ondansetron 4 Mg/2 Ml Inj IV 4 mg Q8H PRN Administration Nausea And Vomiting Oxycodone/Acetaminophen 1 tab 03/28/21 22:48 Oxycodone /Acetaminophen 5-325mg Tab PO Q6H PRN Pain, Moderate (4-6) Sodium Chloride 10 ml 03/28/21 23:00 03/29/21 21:02 Sodium Chloride 0.9% 10 Ml Flush Syringe IV 10 ml BID CLAUS Administration Sodium Chloride 10 ml 03/28/21 22:48 Sodium Chloride 0.9% 10 Ml Flush Syringe IV PRN PRN LINE FLUSH Zinc Sulfate 220 mg 03/29/21 10:00 03/29/21 11:09 Zinc Sulfate 220 Mg Cap PO 220 mg QDAY CLAUS Administration
[2021-03-30] MEDS: FAMOTIDINE 20 MG/2 ML INJ IV SCH ×2 (09:11→23:02)
[2021-03-30] MEDS: cefTRIAXone/NS 1 GM/50 ML 1 GM/50 ML BAG IV SCH (09:13)
[2021-03-30] MEDS: ONDANSETRON 4 MG/2 ML INJ IV PRN ×2 (09:20→20:10)
--- NOTE | 2021-03-30 13:46 | Progress Note ---
Assessment and Plan - Patient Problems (1) RLQ abdominal pain Current Visit: Yes Status: Acute Plan to address problem: 1) CLD 2) CBC and BMP in the am Subjective Date of service: 03/30/21 Patient Reports: Positive: no new complaints, feels better, nausea Objective Vital Signs - 12hr 03/30/21 03/30/21 03/30/21 04:36 05:06 06:00 Temperature 98.5 F Pulse Rate 57 L Respiratory 19 18 16 Rate Blood Pressure 106/58 [Right] O2 Sat by Pulse 97 Oximetry 03/30/21 08:20 Temperature Pulse Rate Respiratory Rate Blood Pressure [Right] O2 Sat by Pulse 95 Oximetry - Abdomen soft, bowel sounds normal (NT) - Labs 03/30/21 06:05 03/30/21 06:05 Diabetes panel 03/30/21 Range/Units 06:05 Sodium 140 (137-145) mmol/L Potassium 3.6 (3.6-5.0) mmol/L Chloride 104.5 (98-107) mmol/L Carbon Dioxide 19 L D (22-30) mmol/L BUN 7 (7-17) mg/dL Creatinine 0.8 (0.6-1.2) mg/dL Glucose 89 (65-100) mg/dL Calcium 8.3 L (8.4-10.2) mg/dL Calcium panel 03/30/21 Range/Units 06:05 Calcium 8.3 L (8.4-10.2) mg/dL Pituitary panel 03/30/21 Range/Units 06:05 Sodium 140 (137-145) mmol/L Potassium 3.6 (3.6-5.0) mmol/L Chloride 104.5 (98-107) mmol/L Carbon Dioxide 19 L D (22-30) mmol/L BUN 7 (7-17) mg/dL Creatinine 0.8 (0.6-1.2) mg/dL Glucose 89 (65-100) mg/dL Calcium 8.3 L (8.4-10.2) mg/dL Adrenal panel 03/30/21 Range/Units 06:05 Sodium 140 (137-145) mmol/L Potassium 3.6 (3.6-5.0) mmol/L Chloride 104.5 (98-107) mmol/L Carbon Dioxide 19 L D (22-30) mmol/L BUN 7 (7-17) mg/dL Creatinine 0.8 (0.6-1.2) mg/dL Glucose 89 (65-100) mg/dL Calcium 8.3 L (8.4-10.2) mg/dL
[2021-03-30] MEDS: ZINC SULFATE 220 MG CAP PO SCH (14:16)
[2021-03-30] MEDS: ASCORBIC ACID 500 MG TAB PO SCH (14:16)
[2021-03-30] MEDS: CHOLECALCIFEROL (VIT D3) 1000 UNIT (25 mcg) TAB PO SCH (14:17)
[2021-03-30] MEDS: SODIUM CHLORIDE 0.9% 1000 ML 1,000 ML IV SCH (14:18)
[2021-03-30] MEDS: ACETAMINOPHEN 325 MG TAB PO PRN (20:34)
[2021-03-31] MEDS: SODIUM CHLORIDE 0.9% 1000 ML 1,000 ML IV SCH (03:03)
[2021-03-31 05:41] VITALS: BP 116/76
[2021-03-31] MEDS: metroNIDAZOLE/NS 500 MG/100 ML 500 MG/100 ML BAG IV SCH ×2 (06:22→17:14)
[2021-03-31] MEDS: ONDANSETRON 4 MG/2 ML INJ IV PRN ×3 (06:26→12:27)
[2021-03-31] MEDS: MORPHINE 2 MG/1 ML INJ IV PRN ×2 (06:27→12:27)
[2021-03-31] MEDS: ACETAMINOPHEN 325 MG TAB PO PRN ×2 (07:22→14:48)
[2021-03-31 08:04] LABS: Basophils % (Auto) 0.3 % (0.0-1.8); Eosinophils % (Auto) 0.3 % (0.0-4.3); Hemoglobin 12.4 gm/dl (10.1-14.3); Lymphocytes # (Auto) 0.8 K/mm3 (1.2-5.4); Mean Corpuscular HGB Conc 35 % (30-34); Mean Corpuscular Volume 93 fl (79-97); Monocytes # (Auto) 0.9 K/mm3 (0.0-0.8); Monocytes % (Auto) 13.9 % (0.0-7.3); Platelet Count 259 K/mm3 (140-440); Red Blood Count 3.89 M/mm3 (3.65-5.03); Red Cell Distribution Width 13.6 % (13.2-15.2)
[2021-03-31 08:22] LABS: Blood Urea Nitrogen 5 mg/dL (7-17); Calcium 8.2 mg/dL (8.4-10.2); Hemolysis Index 2
[2021-03-31 08:23] LABS: BUN/Creatinine Ratio 7
--- NOTE | 2021-03-31 09:17 | Progress Note ---
Assessment and Plan - Patient Problems (1) RLQ abdominal pain Current Visit: Yes Status: Acute Plan to address problem: 1) Can be discharged from my perspective. 2) Discharge home on Levaquin, 500 mg po daily X 7 days. 3) F/u in my office in 2 weeks. 4) Interval appendectomy in 4-6 weeks Subjective Date of service: 03/31/21 Patient Reports: Positive: no new complaints, feels better (Denies abdominal pain.) Objective Vital Signs - 12hr 03/30/21 03/31/21 21:37 04:26 Temperature 98.8 F 98.2 F Pulse Rate 57 L 69 Respiratory 18 18 Rate Blood Pressure 121/76 116/76 O2 Sat by Pulse 100 98 Oximetry - Abdomen soft, bowel sounds normal (NT) - Labs 03/31/21 06:57 03/31/21 06:57 Diabetes panel 03/31/21 Range/Units 06:57 Sodium 139 (137-145) mmol/L Potassium 3.5 L (3.6-5.0) mmol/L Chloride 105.0 (98-107) mmol/L Carbon Dioxide 22 (22-30) mmol/L BUN 5 L (7-17) mg/dL Creatinine 0.7 (0.6-1.2) mg/dL Glucose 83 (65-100) mg/dL Calcium 8.2 L (8.4-10.2) mg/dL Calcium panel 03/31/21 Range/Units 06:57 Calcium 8.2 L (8.4-10.2) mg/dL Pituitary panel 03/31/21 Range/Units 06:57 Sodium 139 (137-145) mmol/L Potassium 3.5 L (3.6-5.0) mmol/L Chloride 105.0 (98-107) mmol/L Carbon Dioxide 22 (22-30) mmol/L BUN 5 L (7-17) mg/dL Creatinine 0.7 (0.6-1.2) mg/dL Glucose 83 (65-100) mg/dL Calcium 8.2 L (8.4-10.2) mg/dL Adrenal panel 03/31/21 Range/Units 06:57 Sodium 139 (137-145) mmol/L Potassium 3.5 L (3.6-5.0) mmol/L Chloride 105.0 (98-107) mmol/L Carbon Dioxide 22 (22-30) mmol/L BUN 5 L (7-17) mg/dL Creatinine 0.7 (0.6-1.2) mg/dL Glucose 83 (65-100) mg/dL Calcium 8.2 L (8.4-10.2) mg/dL
[2021-03-31] MEDS: FAMOTIDINE 20 MG/2 ML INJ IV SCH (09:43)
[2021-03-31] MEDS: ASCORBIC ACID 500 MG TAB PO SCH (09:43)
[2021-03-31] MEDS: CHOLECALCIFEROL (VIT D3) 1000 UNIT (25 mcg) TAB PO SCH (09:43)
[2021-03-31] MEDS: ZINC SULFATE 220 MG CAP PO SCH (09:43)
[2021-03-31] MEDS: cefTRIAXone/NS 1 GM/50 ML 1 GM/50 ML BAG IV SCH (09:46)
--- NOTE | 2021-03-31 09:48 | Progress Note ---
Assessment and Plan Cultures: SARS CoV2 PCR: negative 03/28/2021 blood culture: no growth today A/P: 40/F with: #Bilateral Pneumonia: tested positive for COVID19 2 weeks ago, she tested negative as an outpatient and here. Even though her tests were negative, her symptoms (cough, loss of taste, etc) and close exposure to positive for COVID, this is likely suggestive of COVID19 infection. Less likely CAP as procal is low. Not hypoxic. #Suspected appendicitis: General surgery has been consulted considering outpatient appendectomy. Recs: Repeat CRP before dc Ok to dc on levaquin 500 mg po daily and flagyl 500 mg po TID total 7 days till 04/04/2021 to cover appendicitis?. Surgery f/u Sharmin Pollack MD [facility] ([facility]) Office [phone] Subjective Date of service: 03/31/21 Principal diagnosis: Pneumonia and appendicitis Interval history: Feels better. No abdominal pain, no fever. Objective - Exam Narrative Exam: General appearance: Alert in NAD pleasant Eyes: anicteric sclerae, moist conjunctivae; no lid-lag; PERRLA HENT: Normocephalic, Atraumatic; normal external ears, nares open, oropharynx clear with moist mucous membranes and no oral thrush Neck: supple, tracheal midline, no JVD Lungs: scattered rhonchi CV: RRR no murmur Abdomen: Soft, non-tender; no masses or hepatosplenomegaly Extremities: no edema, no cyanosis Skin: No rash. Psych: no agitated Neuro: alert and oriented x 3. Moving all extermities - Constitutional Vitals: Vital Signs Temp Pulse Resp BP Pulse Ox 98.2 F 69 18 116/76 98 03/31/21 04:26 03/31/21 04:26 03/31/21 04:26 03/31/21 04:26 03/31/21 04:26 Temperature -Last 24 Hours Temperature 98.2 F Temperature 98.8 F Temperature 98.6 F Temperature 98.6 F - Labs CBC & Chem 7: 03/31/21 06:57 03/31/21 06:57 Labs: Abnormal lab results 03/31/21 03/31/21 Range/Units 06:57 06:57 MCHC 35 H (30-34) % Lymph % (Auto) 13.0 L (13.4-35.0) % [place] % (Auto) 13.9 H (0.0-7.3) % Lymph # (Auto) 0.8 L (1.2-5.4) K/mm3 [place] # (Auto) 0.9 H (0.0-0.8) K/mm3 Seg Neutrophils % 72.5 H (40.0-70.0) % Potassium 3.5 L (3.6-5.0) mmol/L BUN 5 L (7-17) mg/dL Calcium 8.2 L (8.4-10.2) mg/dL
--- NOTE | 2021-03-31 13:00 | Discharge Summary ---
Providers - Providers Date of Admission: 03/28/21 22:48 Attending physician: TRANG SIDHU MD 03/28/21 22:48 Consult to Physician [CONS] Stat Comment: Consulting Provider: JW DALY Physician Instructions: NPO after Midnight; IV Abx; Admit to hospitalist Reason For Exam: acute appendicitis 03/28/21 23:52 Consult to Physician [CONS] Routine Comment: Consulting Provider: PAMELA ARAUZ Physician Instructions: Reason For Exam: PUI Primary care physician: DONOR FLOOR TECHNICIAN Hospitalization Condition: Stable Exam - Constitutional Vitals: Temp Pulse Resp BP Pulse Ox 98.2 F 69 18 116/76 95 03/31/21 04:26 03/31/21 04:26 03/31/21 04:26 03/31/21 04:26 03/31/21 11:10 Plan Care Plan Goals: Complete course of antibiotics. Follow-up with surgery for outpatient procedure. Assessment: Follow-up with surgery for possible outpatient appendectomy. Continue antibiotics. Patient clinically improv improved at time of discharge. Follow up with: SHERI BARNETT MD [Primary Care Provider] - 7 Days MIRTA PLASENCIA DO [Staff Physician] - 14 Days Prescriptions: metroNIDAZOLE [Flagyl TAB] 500 mg PO Q8HR 5 Days #15 tablet levoFLOXacin [Levaquin TAB] 500 mg PO QDAY 5 Days #5 tablet
--- NOTE | 2021-04-02 11:09 | Electrocardiograph Report ---
[facility] Test Date: 2021-03-30 Test Time: 13:48:56 Pat Name: CELINE BACH Department: Room: 92 1 Gender: F Budder: SHERITA : 1980 Requested By: TRANG SIDHU Order Number: [id number] Reading MD: Ryan France Measurements Intervals [place] Rate: 60 P: 40 MT: 120 QRS: 57 QRSD: 90 T: 5 QT: 431 QTc: 433 Interpretive Statements Sinus rhythm Low voltage, precordial leads No previous ECG available for comparison Electronically Signed On 04-02-2021 11:09:19 EDT by Ryan France
== END 2021-03-31 16:20 | disposition home or self-care (01) | DRG 393 ==
LOC: ED 18:43 → 3A 22:48
PROVIDERS: ADMIT Internal Medicine Geriatric Medicine; ATTEND Student in an Organized Health Care Education/Training Program
DX: K35.80 Unspecified acute appendicitis (principal); U07.1 COVID-19; F12.90 Cannabis use, unspecified, uncomplicated
CPT/HCPCS: 36415; 71046; 74177; 80048; 80053; 81001; 82140; 82728; 82947; 83615; 84145; 84703; 85025; 85379; 86140; 87040; 93005; 99406; G0378; J0456; J0696; J1885; J2270; J2405; J2543; J2765; J7030; Q9967; U0003

== ENCOUNTER 2021-04-30 06:40 | Day surgery (SDC) | payer OTHER ==
--- NOTE | 2021-04-08 10:50 | Anesthesia Consultation ---
Anesthesia Consult and Med Hx Date of service: 04/08/21 - Airway Anesthetic Teeth Evaluation: Good ROM Head & Neck: Adequate Mental/Hyoid Distance: Adequate Mallampati Class: Class III Intubation Access Assessment: Possibly Difficult - Pulmonary Exam CTA: No (slight crackles R lung base which cleared with deep inspiration) - Cardiac Exam Cardiac Exam: RRR - Pre-Operative Health Status ASA Pre-Surgery Classification: ASA3 Proposed Anesthetic Plan: General - Pulmonary Hx Smoking: Yes (THC up to 4x daily) Hx Respiratory Symptoms: Yes (cough productive of light yellow sputum) Hx Pneumonia: Yes (concern for PNA 03/28/21 (see below)) - Cardiovascular System Hx Hypertension: No Hx Heart Attack/AMI: No Hx Percutaneous Transluminal Coronary Angioplasty (PTCA): No Hx Cardia Arrhythmia: No - Central Nervous System CVA: No - Endocrine Hx Renal Disease: No Hx Liver Disease: No Hx Insulin Dependent Diabetes: No Hx Non-Insulin Dependent Diabetes: No Hx Thyroid Disease: No - Other Systems Hx Alcohol Use: Yes (3-4 drinks daily; none in 2wks) Hx Substance Use: Yes (THC) Hx Obesity: No - Additional Comments Anesthesia Medical History Comments: No prior GA or FHx anesthetic complications. Patient admitted 03/28/21 w/ concern for appendicitis and also possible PNA (cough, loss of taste/smell, ground glass opacities in lung bases, known exposure in the household). During admission, she did not require oxygen and had negative COVID test. Despite this, infectious disease specialist concluded likely COVID infection w/ overall clinical picture. Given concern for PNA, she was d/c'd on antibiotics which she has completed. She reports ongoing productive cough which is improving and loss of taste/smell which is gradually returning. Abdominal pain has resolved and she is tolerating PO diet. Discussed with patient risk of periop pulmonary complications w/ GETA and recent pulmonary infection. Recommed postponing surgery for several weeks to decrease these ri sks. However, patient advised that if abdominal symptoms return, she should return to ED for medical evaluation immediately. Questions were answered and patient was in agreement with plan.
[2021-04-29 10:52] LABS: Hematocrit 38.2 % (30.3-42.9); Hemoglobin 12.8 gm/dl (10.1-14.3); Mean Corpuscular HGB Conc 33 % (30-34); Mean Corpuscular Volume 95 fl (79-97); Platelet Count 352 K/mm3 (140-440); Red Blood Count 4.01 M/mm3 (3.65-5.03); Red Cell Distribution Width 14.5 % (13.2-15.2)
[2021-04-29 10:58] LABS: Alanine Aminotransferase 52 units/L (7-56); Albumin 3.8 g/dL (3.9-5); Blood Urea Nitrogen 11 mg/dL (7-17); Calcium 8.8 mg/dL (8.4-10.2); Hemolysis Index 2
[2021-04-29 11:02] LABS: BUN/Creatinine Ratio 18
[~2021-04-30 06:40] MED LIST: ACETAMINOPHEN 325 MG TAB PO SCH; CELECOXIB 200 MG CAP PO NR; LACTATED RINGERS 1,000 ML IV SCH; MAGNESIUM OXIDE 400 MG TAB PO SCH; MIDAZOLAM 2 MG/2 ML INJ IV NR
[2021-04-30] MEDS ORDERED: ceFAZolin/STERILE WATER 2 GM/20 ML SYRINGE IV NR (07:00)
--- NOTE | 2021-04-30 07:23 | Anesthesia Day of Surgery ---
Anesthesia Day of Surgery - Day of Surgery Patient Examined: Yes Patient H&P Reviewed: Yes Patient is NPO: Yes
[2021-04-30] MEDS ORDERED: BUPIVACAINE/PF (0.5%) 5 MG/1 ML 30 ML VIAL INFILTRATI ONE (07:37)
[2021-04-30] MEDS ORDERED: LIDOCAINE (1%) 10 MG/1 ML VIAL 20 ML MDV ONE (07:37)
[2021-04-30] MEDS ORDERED: propofoL 200 MG/20 ML VIAL IV ONE (07:48)
[2021-04-30] MEDS ORDERED: ROCURONIUM 50 MG/5 ML INJ IV ONE (07:48)
[2021-04-30] MEDS ORDERED: LIDOCAINE MPF (2%) 20 MG/1 ML VIAL 5 ML ONE (07:48)
[2021-04-30] MEDS ORDERED: ONDANSETRON 4 MG/2 ML INJ ONE (07:48)
[2021-04-30] MEDS ORDERED: HYDROmorphone 1 MG/1 ML INJ ONE (07:48)
[2021-04-30] MEDS ORDERED: HYDROmorphone 1 MG/1 ML INJ IV PRN ×2 (08:00)
[2021-04-30] MEDS ORDERED: ONDANSETRON 4 MG/2 ML INJ IV PRN (08:00)
[2021-04-30] MEDS ORDERED: LIDOCAINE (1%) 10 MG/1 ML VIAL 20 ML MDV INFILTRATI ONE (09:02)
[2021-04-30] MEDS ORDERED: BUPIVACAINE/PF (0.25%) 2.5 MG/ML 30 ML VIAL INFILTRATI ONE (09:02)
[2021-04-30] MEDS ORDERED: GLYCOPYRROLATE 0.4 MG/2 ML INJ ONE (09:02)
[2021-04-30] MEDS ORDERED: NEOSTIGMINE 10MG/10 ML INJ MDV ONE (09:03)
[2021-04-30] MEDS ORDERED: SODIUM CHLORIDE 0.9% IRR 1,500 ML BOTTLE IR ONE (09:03)
[2021-04-30] MEDS ORDERED: KETOROLAC 30 MG/1 ML INJ ONE (09:03)
--- NOTE | 2021-04-30 09:18 | Short Stay Summary ---
Short Stay Documentation Date of service: 04/30/21 - History Principal diagnosis: abnormal appendix, hx appendicitis H&P: obtained from office - Allergies and Medications Current Medications: Allergies No Known Allergies Allergy (Verified 04/04/21 17:59) Home Medications Medication Instructions Recorded Confirmed Last Taken Type levoFLOXacin [Levaquin TAB] 500 mg PO QDAY 5 Days #5 tablet 03/31/21 04/04/21 Unknown Rx metroNIDAZOLE [Flagyl TAB] 500 mg PO Q8HR 5 Days #15 tablet 03/31/21 04/04/21 Unknown Rx Active Medications Acetaminophen (Acetaminophen 325 Mg Tab) 650 mg PO ONCE CLAUS Stop: 04/30/21 23:00 Cefazolin Sodium (Cefazolin/Sterile Water 2 Gm/20 Ml Syringe) 2 gm IV PREOP NR Stop: 04/30/21 20:00 Celecoxib (Celecoxib 200 Mg Cap) 200 mg PO PREOP NR Stop: 04/30/21 23:00 Hydromorphone HCl (Hydromorphone 1 Mg/1 Ml Inj) 0.25 mg IV Q10MIN PRN PRN Reason: Pain, Moderate (4-6) Stop: 04/30/21 17:00 Hydromorphone HCl (Hydromorphone 1 Mg/1 Ml Inj) 0.5 mg IV Q10MIN PRN PRN Reason: Pain , Severe (7-10) Stop: 04/30/21 18:00 Lactated Ringer's (Lactated Ringers) 1,000 mls @ 125 mls/hr IV DIRECT CLAUS Magnesium Oxide (Magnesium Oxide 400 Mg Tab) 400 mg PO ONCE CLAUS Stop: 04/30/21 23:00 Midazolam HCl (Midazolam 2 Mg/2 Ml Inj) 2 mg IV PREOP NR Stop: 04/30/21 23:59 Ondansetron HCl (Ondansetron 4 Mg/2 Ml Inj) 4 mg IV ONCE PRN PRN Reason: Nausea And Vomiting Stop: 04/30/21 18:00 - Brief post op/procedure progress note Date of procedure: 04/30/21 Pre-op diagnosis: abnormal appendix, hx of appendicitis Post-op diagnosis: same Procedure: Laparoscopic appendectomy Anesthesia: GETA, local Findings: mildly enlarged appendix base Surgeon: MIRTA PLASENCIA Estimated blood loss: minimal Pathology: list (appendix) Specimen disposition: to lab Condition: stable - Hospital course Hospital course: Pt observed in PACU and discharged to home in stable condition when criteria met - Disposition Condition at discharge: Good Disposition: 01 HOME / SELF CARE / HOMELESS Short Stay Discharge Plan Activity: other (No heavy lifting of greater than 15 to 20 lbs for next 1 week) Diet: regular Wound: open to air Additional Instructions: SEE PRINTED INSTRUCTIONS Follow up with: UMA LOPEZ MD [Primary Care Provider] - 7 Days MIRTA PLASENCIA DO [Staff Physician] - 14 Days Prescriptions: HYDROcodone/APAP 5-325 [[place] 5/325] 1 each PO Q6HR PRN #20 tablet PRN Reason: Pain
[2021-04-30] MEDS ORDERED: LACTATED RINGERS 1,000 ML ONE (09:21)
[2021-04-30] MEDS ORDERED: dexAMETHasone 20 MG/5 ML VIAL ONE (11:03)
[2021-04-30 11:08] VITALS: BP 124/70
--- NOTE | 2021-04-30 17:12 | Post Anesthesia Evaluation ---
- Post Anesthesia Evaluation Patient Participated: Yes Airway Patent: Yes Stable Respiratory Function: Yes Nausea/Vomiting: No Temp > 96.8F: Yes Pain Manageable: Yes Adequeate Hydration: Yes Anesthesia Complications: No Block Receding Appropriately: Not Applicable Patient on Ventilator: No
--- NOTE | 2021-05-06 08:37 | Operative Report ---
Operative Report Operative Report: Date of procedure: 04/30/21 9:15 Pre-op diagnosis: abnormal appendix, hx of appendicitis Post-op diagnosis: same Procedure: Laparoscopic appendectomy Anesthesia: GETA, local Findings: mildly enlarged appendix base Surgeon: MIRTA PLASENCIA Estimated blood loss: minimal Pathology: list (appendix) Specimen disposition: to lab Condition: stable Hospital course: Pt observed in PACU and discharged to home in stable condition when criteria met HPI and indication: 40 yo F who was hospitalized at [facility] with a diagnosis of acute appendicitis. At that time the patient was managed with antibiotics as she was still recovering from COVID-19 virus and had lingering symptoms of pneumonia. She improved and was discharged home with instructions to follow-up in the surgery clinic to discuss interval appendectomy. Nonsurgical and surgical management was discussed with the patient and she elected to proceed with appendectomy. All risks, benefits, alternatives to surgery were discussed and questions answered. Consent was obtained. Procedure in detail: Patient was identified in the preop area and taken back to the OR and placed on the OR table in supine position. After anesthesia was induced a oglesby catheter was steriley placed by the circulating nurse. The left arm was tucked and all bony prominences padded appropriately. the abdomen was prepped and draped in the usual sterile fashion and a timeout performed. Local anesthetic was infilitrated into all skin incision sites. A supraumbilical incision was made and veress needle inserted. The positioning of the veress needle was confirmed using the saline drop test and the abdomen insufflated to 15 mmHg without incident. The Veress needle was removed and a 5mm Optiview trocar was placed through the supraumbilical incision. The abdomen was inspected and no underlying injury to the abdominal structures was identified. The patient was placed in Trendelenburg and tilted to the left. The appendix was identified. A 12 mm LLQ trocar and 5 mm right upper quadrant trocar were placed under direct visualization. The appendix base was identified and noted to be mildly enlarged. The mesentery of the appendix was ligated using the harmonic scalpel. The base of the appendix was transected using an ethicon flex stapler 45mm white load. The appendix was placed into an endocatch bag and removed via the 12 mm port. This was passed off the table as specimen. The staple line and mesentery were then inspected. 2 small clips were placed on the edge of the staple line for minimal oozing. No further bleeding was visualized and hemostasis ensured. The patient was placed in neutral position. The 12 mm port fascia was closed with a single interrupted 0 vicryl stitch using the Silviano Em device. The remaining ports were removed under direct visualization and the abdomen desufflated. All skin incisions were closed using 4-0 monocryl subcuticular stitches and skin glue. Local anesthetic was once again infiltrated into all skin incision sites. At the end of the case, all sponge, instrument, sharp counts were correct x2. The patient was awoken from anesthesia, oglesby catheter removed, and she was taken to PACU in stable condition.
== END 2021-04-30 10:30 | disposition home or self-care (01) ==
LOC: OR 06:40
PROVIDERS: ATTEND Surgery
DX: K35.890 Other acute appendicitis without perforation or gangrene (principal); F41.9 Anxiety disorder, unspecified; F32.9 Major depressive disorder, single episode, unspecified; F12.90 Cannabis use, unspecified, uncomplicated; Z79.899 Other long term (current) drug therapy; Z98.890 Other specified postprocedural states; Z20.822 Contact with and (suspected) exposure to COVID-19
CPT/HCPCS: 36415; 44970; 80053; 84703; 85027; 88304; J0690; J1100; J1170; J1885; J2405; J2704; J2710; J7120; U0003